=== PATIENT | male | born 1970 | race Caucasian/White ===

== ENCOUNTER 2020-09-18 19:24 | Emergency (ER) | payer SELFPAY ==
[~2020-09-18] VITALS: Ht 182.9 cm; Wt 87.0 kg
--- NOTE | 2020-09-18 19:38 | NUR ---
NO ANSWER FROM [facility]OB[facility]
[2020-09-18] MEDS ORDERED: KETOROLAC 30 MG/1 ML IVPush ONE (20:30)
[2020-09-18] MEDS ORDERED: SODIUM CHLORIDE FLUSH 10ML SYR IVF ONE (20:30)
[2020-09-18] MEDS ORDERED: DIAZEPAM 5 MG/ML, 10ML VIAL IV ONE (20:30)
[2020-09-18] MEDS ORDERED: KETOROLAC 30 MG/1 ML ONE (20:35)
[2020-09-18] MEDS ORDERED: DIAZEPAM 5 MG/ML, 2ML ONE (20:35)
[2020-09-18 20:54] LABS: BASOPHILS % (AUTO) 1 % (0-1); EOSINOPHILS % (AUTO) 1 % (1-7); LYMPHOCYTES % (AUTO) 13 % (22-44); MEAN CORPUSCULAR HEMOGLOBIN 29.7 pg (27.5-34.5); MEAN PLATELET VOLUME 7.7 fL (7.4-10.4); MONOCYTES % (AUTO) 8 % (2-9); NEUTROPHILS % (AUTO) 77 % (42-75); PLATELET COUNT 261 x10^3/uL (130-400); RED CELL DISTRIBUTION WIDTH 12.7 % (9.4-14.8)
[2020-09-18 21:02] LABS: ALANINE AMINOTRANSFERASE 19 U/L (12-78); ALBUMIN 2.8 g/dL (3.4-5.0); ANION GAP 4 mmol/L (5-15); CHLORIDE 100 mmol/L (98-107); CREATININE 0.96 mg/dL (0.7-1.3)
[2020-09-18 21:05] LABS: MICROSCOPIC INDICATED
[2020-09-18 21:07] LABS: ALKALINE PHOSPHATASE 132 U/L (45-117); BILIRUBIN,TOTAL 0.3 mg/dL (0.2-1.0); TOTAL PROTEIN 8.3 g/dL (6.4-8.2); TROPONIN I < 0.015 ng/mL (0.000-0.045)
--- NOTE | 2020-09-18 21:20 | NUR ---
Pt on monitor. Warm blanket given. IV placed. Labs sent Pt medicated per order. Pt appears more comfortable 2l NC placed post valium. Pt maintaining sats and airway. Pt resting, awakes to verbal. Denies any needs. Will continue to monitor.
[2020-09-18] MEDS ORDERED: CEFTRIAXONE PMX 1GM/50ML 50 ML IV ONE (21:30)
[2020-09-18] MEDS ORDERED: CEFTRIAXONE PMX 1GM/50ML 50 ML ONE (22:10)
[2020-09-18] MEDS ORDERED: OMNIPAQUE 350 MG/ML, 75ML BOTTLE ONE (22:14)
[2020-09-18] MEDS ORDERED: SODIUM CHLORIDE 0.9% 1,000ML IVBOLUS ONE (22:30)
[2020-09-18 22:35] LABS: AMPHETAMINE SCREEN, URINE Positive (Negative); BARBITURATE SCREEN, URINE Negative (Negative); BENZODIAZEPINE SCREEN, URINE Negative (Negative); CANNABINOID SCREEN, URINE Negative (Negative); COCAINE SCREEN, URINE Negative (Negative); METHADONE SCREEN, URINE Negative (Negative); OPIATE SCREEN, URINE Negative (Negative)
[2020-09-18 23:33] VITALS: BP 118/80
--- NOTE | 2020-09-18 23:36 | NUR ---
Pt states feeling better and ok to go home. Pt instructed not to drive and home with his sister. Rx reviewed. Patient/Caregiver given discharge instructions and they have confirmed that they understand the instructions. Patient ambulatory with steady gait.
== END 2020-09-18 23:38 | disposition home or self-care (01) ==
LOC: ED 23:20
DX: S29.012A Strain of muscle and tendon of back wall of thorax, initial encounter (principal); M62.830 Muscle spasm of back; F15.10 Other stimulant abuse, uncomplicated; N30.00 Acute cystitis without hematuria; R00.0 Tachycardia, unspecified; R10.9 Unspecified abdominal pain; Z72.9 Problem related to lifestyle, unspecified; X58.XXXA Exposure to other specified factors, initial encounter; Y93.89 Activity, other specified; Y92.89 Other specified places as the place of occurrence of the external cause; Y99.8 Other external cause status
CPT/HCPCS: 36415; 71045; 71275; 80053; 80307; 81001; 83690; 84484; 85025; 85379; 87077; 87086; 87147; 87186; 87491; 87591; 93005; 96365; 96375; 99285; J0696; J1885; J3360; J7030; Q9967

== ENCOUNTER 2020-09-19 16:10 | Emergency (ER) | payer SELFPAY ==
[~2020-09-19] VITALS: Ht 182.9 cm; Wt 88.5 kg
[2020-09-19] MEDS ORDERED: KETOROLAC 30 MG/1 ML IM ONE (16:30)
[2020-09-19] MEDS ORDERED: KETOROLAC 30 MG/1 ML ONE (16:37)
[2020-09-19 16:57] LABS: BASOPHILS % (AUTO) 1 % (0-1); EOSINOPHILS % (AUTO) 1 % (1-7); LYMPHOCYTES % (AUTO) 11 % (22-44); MEAN CORPUSCULAR HEMOGLOBIN 29.2 pg (27.5-34.5); MEAN CORPUSCULAR HGB CONC 33.5 g/dL (33.2-36.2); MEAN PLATELET VOLUME 7.8 fL (7.4-10.4); MONOCYTES % (AUTO) 11 % (2-9); NEUTROPHILS % (AUTO) 77 % (42-75); PLATELET COUNT 266 x10^3/uL (130-400); RED BLOOD COUNT 5.37 x10^6/uL (4.38-5.82); RED CELL DISTRIBUTION WIDTH 12.6 % (9.4-14.8)
[2020-09-19 17:00] VITALS: BP 119/74
[2020-09-19 17:09] LABS: MD NO
== END 2020-09-19 18:10 | disposition home or self-care (01) ==
LOC: ED 17:35
DX: M25.531 Pain in right wrist (principal); M79.641 Pain in right hand; M54.5 Low back pain; F17.210 Nicotine dependence, cigarettes, uncomplicated
CPT/HCPCS: 29125; 36415; 73110; 73130; 85025; 96372; 99284; J1885